=== PATIENT | male | born 1970 | race Caucasian/White ===

== ENCOUNTER 2017-09-28 14:34 | Emergency (ER) | payer OTHER ==
[2017-09-28 15:33] LABS: Basophils % (Auto) 0.9 % (0.0-1.8); Eosinophils % (Auto) 0.6 % (0.0-4.3); Hematocrit 46.4 % (35.5-45.6); Hemoglobin 15.8 gm/dl (11.8-15.2); Mean Corpuscular HGB Conc 34 % (32-34); Mean Corpuscular Hemoglobin 31 pg (28-32); Mean Corpuscular Volume 91 fl (84-94); Platelet Count 251 K/mm3 (140-440); Red Blood Count 5.13 M/mm3 (3.65-5.03); Red Cell Distribution Width 12.6 % (13.2-15.2); White Blood Count 6.6 K/mm3 (4.5-11.0)
[2017-09-28 15:45] LABS: BUN/Creatinine Ratio 10; Blood Urea Nitrogen 11 mg/dL (9-20); Calcium 9.2 mg/dL (8.4-10.2); Carbon Dioxide 26 mmol/L (22-30)
[2017-09-28 15:46] LABS: Anion Gap 17 mmol/L; Chloride 92.2 mmol/L (98-107); Potassium 4.4 mmol/L (3.6-5.0); Sodium 131 mmol/L (137-145)
[2017-09-28 15:48] LABS: Bilirubin,Urine Negative (Negative); Blood,Urine Negative (Negative); Ketones,Urine Negative (Negative); Leukocyte Esterase,Urine Negative (Negative); Nitrite,Urine Negative (Negative); Protein,Urine <15 mg/dL mg/dL (Negative); Urobilinogen,Urine < 2.0 mg/dL (<2.0)
[2017-09-28 15:51] LABS: Glucose 666 mg/dL (75-100)
[2017-09-28 16:00] LABS: Mucus,Urine 1+ /HPF
[2017-09-28] MEDS ORDERED: NACL 0.9% 1000 ML 1,000 ML IV ONE (22:25)
--- NOTE | 2017-09-28 22:29 | Emergency Department Report ---
Chief Complaint: Hyperglycemia Stated Complaint: HIGH BLOOD SUGAR - HPI History of Present Illness: 47-year-old male past medical history diabetes presents with complaint of polydipsia polyuria or polyphagia. Patient states he came to the ER because he was voiding urine at least 10 times a day. Patient is awake alert and oriented 3. Denies chest pain or palpitations. States he has slight burning with urination. Patient is [place] speaking which I speak fluently. - ROS Review of Systems: Polydipsia polyuria polyphagia - Exam Vital Signs: Vital Signs 09/28/17 14:44 Temperature 98.4 F Pulse Rate 76 Respiratory 16 Rate Blood Pressure 116/80 O2 Sat by Pulse 96 Oximetry Physical Exam: Heart S1-S2 lungs clear to auscultation MSE screening note: Focused history and physical exam performed. Due to findings the following was ordered: Screening Assessment/Plan/Differential Dx: Hyperglycemia, uncontrolled diabetes 1- This initial assessment/diagnostic orders/clinical plan/ treatment(s) is/are subject to change based on pt's health status, clinical progression and re- assessment by fellow clinical providers in the ED. Further treatment and workup at subsequent clinical provers discretion. Patient/guardians urged not to elope from ED as their condition may be serious if not clinically assessed and managed. 2-I informed patient that his blood sugar is very high and that hyperglycemia can be dangerous. I advised patient to stay in the ED for further treatment including IV fluid and likely need for IV insulin. Patient stated that he is feeling impatient and wishes to leave before being treated however I advised the patient to not do so and explained to him the dangers of hyperglycemia. Patient speaks [place] which I speak fluently. Patient understood my instructions and I updated him on his lab results and patient agreed to stay to be treated. States that he will be patient and wait to be called into an room. I informed charge nurse Ms. Mota of patient's current status. 3-I ordered IV fluid to be administered to the patient. Will defer decision for IV insulin to the main ED provider 4-I informed the patient that there is a possibility of need for admission for control of his high blood glucose. Patient is not currently taking any diabetes medicines. ED Medical Decision Making - Lab Data Result diagrams: 09/28/17 15:06 09/28/17 15:06 ED Disposition for MSE Condition: Stable Referrals: PRIMARY CARE, [Primary Care Provider] - 3-5 Days
[2017-09-29 00:37] LABS: Anion Gap 17 mmol/L; BUN/Creatinine Ratio 19; Blood Urea Nitrogen 15 mg/dL (9-20); Calcium 9.2 mg/dL (8.4-10.2); Carbon Dioxide 26 mmol/L (22-30); Chloride 93.1 mmol/L (98-107); Glucose 362 mg/dL (75-100); Sodium 132 mmol/L (137-145)
--- NOTE | 2017-09-29 01:54 | Emergency Department Report ---
HPI - General Chief Complaint: Hyperglycemia Time Seen by Provider: 09/28/17 23:43 - HPI HPI: This is a 47-year-old male presents to the emergency department, sent in by durga otto, with a complaint of elevated blood sugar. Patient denies any previous history of diabetes. He originally went to the clinic because he was having increased thirst and increased urination. He denies any headache, vision change, shortness of breath, nausea, vomiting or abdominal pain. He did not take anything and was not given anything for his symptoms prior to presentation. He otherwise denies any other past medical history. No recent travel or sick contacts at home. ED Past Medical Hx - Past Medical History Hx Diabetes: Yes - Surgical History Past Surgical History?: No - Social History Smoking Status: Current Every Day Smoker Substance Use Type: Alcohol - Medications Home Medications: Home Medications Medication Instructions Recorded Confirmed Last Taken Type metFORMIN [Glucophage] 500 mg PO BID #60 tablet 09/29/17 Unknown Rx ED Review of Systems ROS: Stated complaint: HIGH BLOOD SUGAR Other details as noted in HPI Comment: All other systems reviewed and negative Constitutional: denies: chills, fever Eyes: denies: eye pain, eye discharge, vision change ENT: denies: ear pain, throat pain Respiratory: denies: cough, shortness of breath, wheezing Cardiovascular: denies: chest pain, palpitations Endocrine: increased thirst, increased urine Gastrointestinal: denies: abdominal pain, nausea, diarrhea Genitourinary: frequency. denies: dysuria Musculoskeletal: denies: back pain, joint swelling, arthralgia Skin: denies: rash, lesions Neurological: denies: headache, weakness, paresthesias Physical Exam - Physical Exam Vital Signs: Vital Signs 09/28/17 09/28/17 09/29/17 14:44 23:38 00:00 Temperature 98.4 F 98.3 F Pulse Rate 76 66 73 Respiratory 16 14 13 Rate Blood Pressure 116/80 119/82 Blood Pressure 115/72 [Left] O2 Sat by Pulse 96 98 98 Oximetry 09/29/17 00:30 Temperature Pulse Rate 69 Respiratory 14 Rate Blood Pressure 113/77 Blood Pressure [Left] O2 Sat by Pulse 98 Oximetry Physical Exam: GENERAL: The patient is well-developed well-nourished. HENT: Normocephalic. Atraumatic. Patient has moist mucous membranes. EYES: Extraocular motions are intact. Pupils equal reactive to light bilaterally. NECK: Supple. Trachea is midline. CHEST/LUNGS: Clear to auscultation. There is no respiratory distress noted. HEART/CARDIOVASCULAR: Regular. There is no tachycardia. There is no murmur. ABDOMEN: Abdomen is soft, nontender. Patient has normal bowel sounds. There is no abdominal distention. SKIN: Skin is warm and dry. NEURO: The patient is awake, alert, and oriented. The patient is cooperative. The patient has no focal neurologic deficits. The patient has normal speech. MUSCULOSKELETAL: There is no tenderness or deformity. There is no limitation range of motion. There is no evidence of acute injury. ED Course Vital Signs 09/28/17 09/28/17 09/29/17 14:44 23:38 00:00 Temperature 98.4 F 98.3 F Pulse Rate 76 66 73 Respiratory 16 14 13 Rate Blood Pressure 116/80 119/82 Blood Pressure 115/72 [Left] O2 Sat by Pulse 96 98 98 Oximetry 09/29/17 00:30 Temperature Pulse Rate 69 Respiratory 14 Rate Blood Pressure 113/77 Blood Pressure [Left] O2 Sat by Pulse 98 Oximetry ED Medical Decision Making - Lab Data Result diagrams: 09/28/17 15:06 09/29/17 00:02 - Medical Decision Making The patient presented to the emergency department with a blood sugar of about 650. He was waiting for a a while before he came back to the main emergency department so I rechecked his blood sugar immediately and his Accu-Chek was about 360. BNP was sent and the patient had a blood sugar of about 360. No venous acidosis. No hyperosmolality. An IV was placed and he was given 1 L of IV fluid and 6 units of regular insulin. One hour later his blood sugar was rechecked and it was down to about 250. Patient is feeling improved. Vital signs stable. He appears safe for discharge home at this time. Using the Hungarian I know and a panamanian translation radha, I explained to him about diabetes , a diabetic diet, starting metformin and the importance of following up with a primary care physician. He says he does not have any further questions and understands the instructions. He was encouraged to return to the emergency Department with any worsening of his symptoms or any acute distress. - Differential Diagnosis DKA, HHNK, UTI Critical Care Time: No Critical care attestation.: If time is entered above; I have spent that time in minutes in the direct care of this critically ill patient, excluding procedure time. ED Disposition Clinical Impression: Diabetes mellitus, new onset, Hyperglycemia Disposition: TO HOME OR SELFCARE Is pt being admited?: No Condition: Stable Instructions: Diabetes Mellitus Type 2 in Adults (ED) Additional Instructions: Please follow up with a primary care physician as soon as possible. I have started you on a diabetes medication called metformin that is to be taken twice a day. This medication will decrease your blood sugar level and therefore he should not skip any meals. However the meals that you eat should be low carbohydrate, low sugar and low starches. Try and keep a blood sugar log. Return to the emergency Department with any worsening of your symptoms or any acute distress. Prescriptions: metFORMIN [Glucophage] 500 mg PO BID #60 tablet Referrals: PRIMARY CAREMD [Primary Care Provider] - 3-5 Days [facility] [Outside] - 3-5 Days [facility] [Outside] - 3-5 Days POLLO RUIZ MD [Staff Physician] - 3-5 Days Time of Disposition: 01:57 Print Language: [place]ORE[place]
[2017-09-29 02:48] VITALS: BP 107/72
== END 2017-09-29 02:50 | disposition home or self-care (01) ==
LOC: ED 14:34
DX: E11.65 Type 2 diabetes mellitus with hyperglycemia (principal); F17.200 Nicotine dependence, unspecified, uncomplicated
CPT/HCPCS: 36415; 80048; 81001; 82805; 82962; 83930; 85025; 96361; 96374; 99284; J7030; J1815